=== PATIENT | female | born 1980 | race Caucasian/White ===

== ENCOUNTER 2016-06-26 13:13 | Outpatient (CLI) | payer OTHER ==
[~2016-06-26] VITALS: Ht 165.1 cm; Wt 85.3 kg
[2016-06-26] VITALS (12 sets, daily range): BP systolic 138–158; BP diastolic 74–91
[~2016-06-26 13:13] MED LIST: BUPRENORPHIN-N1 EACH SL; BUPRENORPHINE HC8 MG SL; CITALOPRAM HBR40 MG PO; CYMBALTA60 MG PO; HYDROXYZINE HCL50 MG PO; IBUPROFEN200 M1 PO; JUNEL FE 1/21 TABLET PO; LIBRIUM25 MG PO; PRENATAL TABLE1 EACH PO; THIAMINE HCL100 MG PO; TRAZODONE HCL100 MG PO; XANAX0.25 MG PO
[2016-06-26] MEDS ORDERED: PROCARDIA XL30 MG PO (17:47)
[2016-06-26 19:47] LABS: AMPHETAMINES QUANT VALUE 0 NG/ML; BARBITUATES QUANT VALUE 0 NG/ML; BENZODIAZEPINES QUANT VALUE 0 NG/ML; BENZODIAZEPINES, URINE SCREEN Negative (200 ng/mL); MARIJUANA QUANT VALUE 0 NG/ML; OPIATES QUANTITATIVE VALUE 0 NG/ML; PHENCYCLIDINE QUANT VALUE 0 NG/ML
== END 2016-06-26 18:00 | disposition home or self-care (01) ==
LOC: LDRP-OP 13:13 → 2WEST 13:14 → LDRP-OP 10-09 17:22
PROVIDERS: Advanced Practice Midwife
DX: O16.9 Unspecified maternal hypertension, unspecified trimester (principal); O99.89 Other specified diseases and conditions complicating pregnancy, childbirth and the puerperium; Z3A.00 Weeks of gestation of pregnancy not specified
CPT/HCPCS: 59025; 76818; 81050; 84156; G0378

== ENCOUNTER 2016-08-03 12:17 | Inpatient (IN) | payer OTHER ==
[~2016-08-03] VITALS: Ht 165.1 cm; Wt 96.0 kg
[~2016-08-03 12:17] MED LIST changes: +PROCARDIA XL30 MG PO
[2016-08-03 12:40] VITALS: BP 142/90
[2016-08-03 13:19] VITALS: BP 140/75
[2016-08-03] MEDS ORDERED: BUPRENORPHINE HC2 MG SL (14:21)
[2016-08-03 16:03] VITALS: BP 182/85
[2016-08-03] MEDS ORDERED: LABETALOL HCL200 MG PO (16:32)
[2016-08-03 20:40] VITALS: BP 176/83
[2016-08-03 23:37] VITALS: BP 135/63
[2016-08-04] VITALS (17 sets, daily range): BP systolic 137–174; BP diastolic 70–98
[2016-08-04 01:56] LABS: BILIRUBIN SMALL; BLOOD SMALL; COLOR AMBER ((YELLOW)); GLUCOSE (STRIP) NEGATIVE; KETONES 20; LEUKOCYTES NEGATIVE; NITRITE NEGATIVE; SPECIFIC GRAVITY 1.034 (1.000-1.030); UROBILINOGEN 0.2 MG/DL (0.2-1.0)
[2016-08-04 01:58] LABS: ADD MIUA? YES; PROTEIN (STRIP) >300
[2016-08-04 02:09] LABS: BACTERIA RARE /HPF; EPITHELIAL CELLS 3+ /HPF; HYALINE CASTS 0-5 /LPF; MUCUS 4+ /LPF; UCUL ADDED? NO; WHITE BLOOD CELLS 0-5 /HPF (0-5)
[2016-08-04 09:20] LABS: EOSINOPHIL (%) 0.1 % (0-5); IMMATURE GRANULOCYTE (%) 1.8 % (0.0-0.7); IMMATURE GRANULOCYTE COUNT 0.2 K/uL; LYMPHOCYTE COUNT 1.6 K/uL (1.0-2.8); MCH 27.9 PG (29.0-34.0); MCHC 34.2 G/DL (30.0-36.0); MCV 81.6 FL (83-99); MEAN PLAT.VOLUME 11.4 uM^3 (9.5-12.4); MONOCYTE COUNT 0.7 K/uL (0-0.8); NEUTROPHIL (%) 81.1 % (45-76); NEUTROPHIL COUNT 10.9 K/uL (1.8-6.4); NRBC (%) 0.4 /100 WBC (0-0); PLATELET COUNT 190 K/uL (156-360); RBC DIS.WIDTH-CV 13.3 % (11.8-14.6); RBC DIS.WIDTH-SD 38.8 % (39-53)
[2016-08-04 09:23] LABS: WHITE BLOOD COUNT 13.4 K/uL (4.1-10.2)
[2016-08-04 09:50] LABS: ANION GAP 10 MEQ/L (2-14); CHLORIDE 104 MEQ/L (99-109); SAMPLE HEMOLYSIS CHECK 0; SAMPLE ICTERIC CHECK 0; SAMPLE LIPEMIA CHECK 0; SODIUM 137 MEQ/L (136-147)
[2016-08-04 09:54] LABS: TOTAL BILIRUBIN 0.4 MG/DL (0.0-1.0)
[2016-08-04 09:56] LABS: ALKALINE PHOSPHATASE 148 IU/L (3-129); GFR ESTIMATE (CALCULATED) > 59 mL/min/; GLUCOSE 92 mg/dL (70-99); UREA NITROGEN (BUN) 12 mg/dL (9-23)
[2016-08-05] VITALS (13 sets, daily range): BP systolic 134–177; BP diastolic 67–97
[2016-08-05 07:48] LABS: DELETE MACHINE DIFF? YES; HEMATOCRIT 27.2 % (36.0-46.0); MCHC 33.5 G/DL (30.0-36.0); MCV 83.7 FL (83-99); RBC DIS.WIDTH-CV 13.5 % (11.8-14.6); RBC DIS.WIDTH-SD 41.3 % (39-53); RED BLOOD COUNT 3.25 M/uL (3.80-5.20); WHITE BLOOD COUNT 15.4 K/uL (4.1-10.2)
[2016-08-05 12:06] LABS: PLATELET COUNT 162 K/uL (156-360)
[2016-08-05 12:12] LABS: ABS NEUTROPHIL COUNT 12.48; ANISOCYTOSIS 1+; HYPOCHROMASIA 2+; MACROCYTES OCC; MICROCYTOSIS 1+; PLAT.SUFFICIENCY ADEQUATE; POLYCHROMASIA OCC; USER ID TLW
[2016-08-06] VITALS (7 sets, daily range): BP systolic 132–169; BP diastolic 65–95
[2016-08-07 03:04] VITALS: BP 159/84
[2016-08-07 07:30] VITALS: BP 144/92
[2016-08-07 11:54] VITALS: BP 134/82
[2016-08-07 16:56] VITALS: BP 143/84
[2016-08-07 19:36] VITALS: BP 155/94
[2016-08-08 00:25] VITALS: BP 137/74
[2016-08-08 04:28] VITALS: BP 153/82
[2016-08-08 08:23] VITALS: BP 154/85
[2016-08-08 08:26] VITALS: BP 154/85
[2016-08-08] MEDS ORDERED: Procardia XL,Adalat PO (09:22)
[2016-08-08] MEDS ORDERED: FERROUS SULFAT325 MG PO (09:22)
[2016-08-08] MEDS ORDERED: ENDOCET 5-3251 EACH PO (09:22)
[2016-08-08 12:21] VITALS: BP 115/62
== END 2016-08-08 17:30 | disposition home or self-care (01) | DRG 765 ==
LOC: LDRP-OP 12:17 → 2WEST 12:18 → LDRP-OP 10-09 18:34
PROVIDERS: Advanced Practice Midwife; Obstetrics & Gynecology; Obstetrics & Gynecology Obstetrics
PROC: 10D00Z1 Extraction of Products of Conception, Low, Open Approach (ICD-10-PCS; principal; 2016-08-04)
DX: O11.4 Pre-existing hypertension with pre-eclampsia, complicating childbirth (principal); O10.92 Unspecified pre-existing hypertension complicating childbirth; O99.03 Anemia complicating the puerperium; D62 Acute posthemorrhagic anemia; O32.1XX0 Maternal care for breech presentation, not applicable or unspecified; O60.14X0 Preterm labor third trimester with preterm delivery third trimester, not applicable or unspecified; O34.03 Maternal care for unspecified congenital malformation of uterus, third trimester; O69.1XX0 Labor and delivery complicated by cord around neck, with compression, not applicable or unspecified; O99.324 Drug use complicating childbirth; F11.20 Opioid dependence, uncomplicated; O99.344 Other mental disorders complicating childbirth; F32.9 Major depressive disorder, single episode, unspecified; F41.9 Anxiety disorder, unspecified; O99.334 Smoking (tobacco) complicating childbirth; F17.210 Nicotine dependence, cigarettes, uncomplicated; Z3A.35 35 weeks gestation of pregnancy; Z37.0 Single live birth; Z88.0 Allergy status to penicillin
CPT/HCPCS: 36415; 80053; 81003; 81050; 82570; 83030; 84156; 85025; 86850; 86870; 86900; 86901; 86905; 86920; 87081; G0378; J0571; J0702; J1580; J1885; J1940; J2270; J2274; J2790; J3475; J7050; J7120

== ENCOUNTER 2017-01-28 07:29 | Emergency (ER) | payer OTHER ==
[~2017-01-28] VITALS: Ht 165.1 cm; Wt 84.1 kg
[~2017-01-28 07:29] MED LIST changes: +BUPRENORPHINE HC2 MG SL; +ENDOCET 5-3251 EACH PO; +FERROUS SULFAT325 MG PO; +LABETALOL HCL200 MG PO; +Procardia XL,Adalat PO
[2017-01-28 08:28] LABS: ADD MIUA? YES; BILIRUBIN NEGATIVE; BLOOD NEGATIVE; COLOR YELLOW ((YELLOW)); GLUCOSE (STRIP) NEGATIVE; KETONES NEGATIVE; LEUKOCYTES NEGATIVE; NITRITE NEGATIVE; PROTEIN (STRIP) 100; SPECIFIC GRAVITY 1.021 (1.000-1.030); UROBILINOGEN 0.2 MG/DL (0.2-1.0)
[2017-01-28 08:32] LABS: EOSINOPHIL (%) 4.1 % (0-5); EOSINOPHIL COUNT 0.4 K/uL (0-0.3); HEMATOCRIT 40.2 % (36.0-46.0); IMMATURE GRANULOCYTE (%) 0.5 % (0.0-0.7); IMMATURE GRANULOCYTE COUNT 0.1 K/uL; INSTRUMENT ABS NEUTROPHIL CT 5.8 K/uL; LYMPHOCYTE COUNT 2.5 K/uL (1.0-2.8); MCH 27.8 PG (29.0-34.0); MCHC 33.3 G/DL (30.0-36.0); MCV 83.4 FL (83-99); MEAN PLAT.VOLUME 9.2 uM^3 (9.5-12.4); MONOCYTE (%) 9.2 % (3-12); MONOCYTE COUNT 0.9 K/uL (0-0.8); NEUTROPHIL (%) 59.8 % (45-76); NEUTROPHIL COUNT 5.8 K/uL (1.8-6.4); PLATELET COUNT 207 K/uL (156-360); RBC DIS.WIDTH-CV 13.2 % (11.8-14.6); RBC DIS.WIDTH-SD 39.8 % (39-53); RED BLOOD COUNT 4.82 M/uL (3.80-5.20); WHITE BLOOD COUNT 9.8 K/uL (4.1-10.2)
[2017-01-28 08:37] LABS: D-DIMER ELISA < 150.00 ng/mLDDU (<230)
[2017-01-28 08:40] LABS: BACTERIA RARE /HPF; EPITHELIAL CELLS 2+ /HPF; HYALINE CASTS 0-5 /LPF; MUCUS 2+ /LPF; RED BLOOD CELLS 0-5 /HPF (0-5); UCUL ADDED? NO; WHITE BLOOD CELLS 0-5 /HPF (0-5)
[2017-01-28 08:42] LABS: CHLORIDE 99 mEq/L (99-109); POTASSIUM 3.8 mEq/L (3.7-5.4); SODIUM 136 mEq/L (136-147)
[2017-01-28 08:45] LABS: GLUCOSE 108 mg/dL (70-99)
[2017-01-28 08:46] LABS: ANION GAP 10 MEQ/L (2-14); TOTAL BILIRUBIN 0.3 mg/dL (0.0-1.0)
[2017-01-28 08:48] LABS: ALKALINE PHOSPHATASE 69 IU/L (3-129); GFR ESTIMATE (CALCULATED) > 59 mL/min/
[2017-01-28 08:49] LABS: UREA NITROGEN (BUN) 17 mg/dL (9-23)
[2017-01-28 08:52] LABS: LIPASE 15 U/L (1.0-51.0)
[2017-01-28 09:01] LABS: QUANTITATIVE HCG < 4.0 MIU/ML
[2017-01-28] MEDS ORDERED: TYLENOL WITH C1 EACH PO (11:33)
[2017-01-28] MEDS ORDERED: NORVASC5 MG PO (11:33)
[2017-01-28 11:47] VITALS: BP 174/99
== END 2017-01-28 11:49 | disposition home or self-care (01) ==
LOC: EME 07:29
PROVIDERS: Emergency Medicine
DX: R10.84 Generalized abdominal pain (principal); I10 Essential (primary) hypertension; S39.012A Strain of muscle, fascia and tendon of lower back, initial encounter; X50.0XXA Overexertion from strenuous movement or load, initial encounter; Y93.E6 Activity, residential relocation; Z87.891 Personal history of nicotine dependence
CPT/HCPCS: 74177; 80053; 81003; 83690; 84702; 85025; 85379; 93005; 99281; 99284; J1885; J2270; J7030